=== PATIENT | male | born 1950 ===

== ENCOUNTER 2021-01-03 12:35 | Inpatient (IN) | payer MEDICARE ==
[2021-01-03 13:37] LABS: ALT (SGPT) 46 U/L (8-55); AST (SGOT) 76 U/L (5-34); Albumin 3.2 g/dL (3.4-4.8); Alkaline Phosphatase 20 U/L (40-110); Anion Gap 14 mmol/L (10-20); BUN (Urea Nitrogen) 16 mg/dL (8.4-25.7); Bilirubin, Total 0.8 mg/dL (0.2-1.2); Calc. Creatinine Clearance 0 mL/min (70-130); Calcium 8.8 mg/dL (7.8-10.44); Carbon Dioxide 25 mmol/L (23-31); Chloride 97 mmol/L (98-107); Globulin 3.3 g/dL (2.4-3.5); Glucose 101 mg/dL (80-115); Potassium 4.3 mmol/L (3.5-5.1); Protein, Total 6.5 g/dL (5.8-8.1); Sodium 132 mmol/L (136-145)
[2021-01-03 13:39] LABS: #Monocytes 0.6 10x3/uL (0.0-1.1); #Neutrophils 4.9 10x3/uL (1.5-8.4); %Lymphocytes 7.5 % (18.0-47.0); %Monocytes 9.7 % (0.0-10.0); %Neutrophils 82.5 % (40.0-75.0); Hemoglobin 14.6 g/dL (13.5-17.5); Mean Corpuscular Hemoglobin 31.3 pg (27.0-33.0); Mean Corpuscular Volume 89.3 fl (81.2-95.1); Mean Platelet Volume 9.7 fl (7.4-10.4); Platelet Count 132 10x3/uL (150-450); RBC Distribution Width 12.6 % (11.5-14.5); Red Blood Cell (RBC) Count 4.67 10x6/uL (4.32-5.72)
[2021-01-03 14:10] LABS: SARS-CoV-2 NAA Rapid Test DETECTED (NotDetected)
[2021-01-03] MEDS ORDERED: Dexamethasone 10 MG/ML VIAL ONE (14:22)
[2021-01-03] MEDS ORDERED: Acetaminophen 500 MG TAB ONE (14:34)
[2021-01-03] MEDS ORDERED: Ondansetron PF 4 MG/2 ML Vial IVP PRN (14:38)
[2021-01-03] MEDS ORDERED: Ventolin HFA Inhaler 60 PUFF INHALER INH PRN (14:43)
[2021-01-03] MEDS ORDERED: Enoxaparin Sodium 100 MG/ML SYRINGE SC SCH (21:00)
[2021-01-03] MEDS: Ascorbic Acid 500 mg Chewable Tablet PO SCH (23:10)
[2021-01-03] MEDS: Zinc Sulfate 220 MG CAP PO SCH (23:11)
[2021-01-04 08:56] LABS: #Monocytes 0.8 10x3/uL (0.0-1.1); %Basophils 0.1 % (0.0-2.0); %Lymphocytes 8.6 % (18.0-47.0); %Monocytes 8.9 % (0.0-10.0); %Neutrophils 81.9 % (40.0-75.0); Hemoglobin 16.8 g/dL (13.5-17.5); Mean Corpuscular HGB CONC 34.2 g/dL (32.0-36.0); Mean Corpuscular Hemoglobin 30.7 pg (27.0-33.0); Mean Corpuscular Volume 89.6 fl (81.2-95.1); Mean Platelet Volume 9.8 fl (7.4-10.4); Platelet Count 161 10x3/uL (150-450); RBC Distribution Width 12.7 % (11.5-14.5); Red Blood Cell (RBC) Count 5.48 10x6/uL (4.32-5.72); White Blood Cell (WBC) Count 8.5 10x3/uL (3.5-10.5)
[2021-01-04 09:12] LABS: ALT (SGPT) 55 U/L (8-55); AST (SGOT) 84 U/L (5-34); Albumin 3.4 g/dL (3.4-4.8); Alkaline Phosphatase 24 U/L (40-110); Anion Gap 16 mmol/L (10-20); BUN (Urea Nitrogen) 20 mg/dL (8.4-25.7); Bilirubin, Total 0.8 mg/dL (0.2-1.2); Calc. Creatinine Clearance 0 mL/min (70-130); Calcium 9.5 mg/dL (7.8-10.44); Carbon Dioxide 25 mmol/L (23-31); Chloride 103 mmol/L (98-107); Globulin 3.9 g/dL (2.4-3.5); Glucose 109 mg/dL (80-115); Potassium 4.4 mmol/L (3.5-5.1); Protein, Total 7.3 g/dL (5.8-8.1); Sodium 140 mmol/L (136-145)
[2021-01-04] MEDS ORDERED: Enoxaparin Sodium 40 MG/0.4 ML SYRINGE ONE (10:21)
[2021-01-04 11:37] VITALS: BMI 26.9
[2021-01-04] MEDS ORDERED: Dexamethasone Sod Phosphate 6 MG in Sodium Chloride 0.9% 50 ML IVPB SCH (12:00)
[2021-01-04] MEDS ORDERED: Enoxaparin Sodium 60 MG/0.6 ML SYRINGE SC SCH (12:00)
[2021-01-04] MEDS: Acetaminophen 325 MG TAB PO PRN ×2 (13:39→22:29)
[2021-01-04] MEDS: Zinc Sulfate 220 MG CAP PO SCH (21:45)
[2021-01-04] MEDS: Ascorbic Acid 500 mg Chewable Tablet PO SCH (21:46)
[2021-01-04] MEDS: Enoxaparin Sodium 100 MG/ML SYRINGE SC SCH (21:46)
[2021-01-05] MEDS: Enoxaparin Sodium 100 MG/ML SYRINGE SC SCH ×2 (10:23→21:48)
[2021-01-05] MEDS: Acetaminophen 325 MG TAB PO PRN ×2 (10:23→21:48)
[2021-01-05 10:30] LABS: Hemoglobin 15.6 g/dL (13.5-17.5); Mean Corpuscular HGB CONC 34.6 g/dL (32.0-36.0); Mean Corpuscular Hemoglobin 30.7 pg (27.0-33.0); Mean Corpuscular Volume 88.8 fl (81.2-95.1); Mean Platelet Volume 9.7 fl (7.4-10.4); Platelet Count 201 10x3/uL (150-450); RBC Distribution Width 12.6 % (11.5-14.5); Red Blood Cell (RBC) Count 5.08 10x6/uL (4.32-5.72); White Blood Cell (WBC) Count 14.2 10x3/uL (3.5-10.5)
[2021-01-05 10:31] LABS: ALT (SGPT) 51 U/L (8-55); AST (SGOT) 65 U/L (5-34); Albumin 2.9 g/dL (3.4-4.8); Alkaline Phosphatase 29 U/L (40-110); Anion Gap 14 mmol/L (10-20); BUN (Urea Nitrogen) 20 mg/dL (8.4-25.7); Bilirubin, Total 1.2 mg/dL (0.2-1.2); CRP (Inflammatory) 13.33 mg/dL (= or < 0.5); Calc. Creatinine Clearance 127 mL/min (70-130); Calcium 8.6 mg/dL (7.8-10.44); Carbon Dioxide 24 mmol/L (23-31); Chloride 101 mmol/L (98-107); Globulin 3.4 g/dL (2.4-3.5); Glucose 129 mg/dL (80-115); Potassium 3.9 mmol/L (3.5-5.1); Protein, Total 6.3 g/dL (5.8-8.1); Sodium 135 mmol/L (136-145)
[2021-01-05] MEDS ORDERED: Dexamethasone 4 mg/ml Vial SLOW IVP SCH ×2 (11:00→21:00)
[2021-01-05 11:11] LABS: MDiff Complete? YES
[2021-01-05 11:20] LABS: Neutrophil 86 % (42-75)
[2021-01-05 11:21] LABS: Band 7 % (5-11); Lymphocytes 4 % (21-51)
[2021-01-05 11:23] LABS: Monocytes 3 % (0-10)
[2021-01-05 11:24] LABS: Platelet Morphology Comment Appears Adequate
[2021-01-05] MEDS ORDERED: BARICITINIB 2 MG TAB PO SCH (11:45)
[2021-01-05] MEDS ORDERED: HYDROcodone/Acetaminophen 7.5/325 mg Tablet PO PRN (15:13)
[2021-01-05] MEDS: HYDROcodone/Acetaminophen 7.5/325 mg Tablet PO PRN (18:36)
[2021-01-05] MEDS: Zinc Sulfate 220 MG CAP PO SCH (21:48)
[2021-01-05] MEDS: Ascorbic Acid 500 mg Chewable Tablet PO SCH (21:48)
[2021-01-05] MEDS: Dexamethasone 20 MG/5 ML VIAL SLOW IVP SCH (21:49)
[2021-01-06 08:25] LABS: Actual Bicarbonate (HCO3a) 27.1 mEq/L (22-28); Base Excess (BEa) 4.8 mEq/L (-2.0 to +3.0); CO2 Tension 33.4 mmHg (35.0-45.0); Calcium, Ionized (arterial) 1.13 mmol/L (1.12-1.30); Carboxyhemoglobin (COHb) 0.4 gm% (0.0-3.0); Hemoglobin (Hb) 15.6 g/dL (14.0-18.0); O2 Tension (PaO2), arterial 57.7 mmHg (> 70.0); Potassium - ABG Lab 3.9 mmol/L (3.70-5.30); Puncture Site LRA; pH, Arterial 7.53 (7.35-7.45)
[2021-01-06 08:55] LABS: ALT (SGPT) 50 U/L (8-55); AST (SGOT) 66 U/L (5-34); Alkaline Phosphatase 38 U/L (40-110); Anion Gap 15 mmol/L (10-20); BUN (Urea Nitrogen) 23 mg/dL (8.4-25.7); Bilirubin, Total 0.9 mg/dL (0.2-1.2); Calc. Creatinine Clearance 130 mL/min (70-130); Calcium 9.2 mg/dL (7.8-10.44); Carbon Dioxide 25 mmol/L (23-31); Chloride 101 mmol/L (98-107); Globulin 3.7 g/dL (2.4-3.5); Glucose 127 mg/dL (80-115); Protein, Total 6.7 g/dL (5.8-8.1); Sodium 137 mmol/L (136-145)
[2021-01-06] MEDS ORDERED: Dexamethasone 20 MG/5 ML VIAL SLOW IVP SCH (09:00)
[2021-01-06] MEDS: Enoxaparin Sodium 100 MG/ML SYRINGE SC SCH ×2 (10:00→21:37)
[2021-01-06] MEDS: Dexamethasone 20 MG/5 ML VIAL SLOW IVP SCH ×2 (10:17→21:38)
[2021-01-06] MEDS: BARICITINIB 2 MG TAB PO SCH (10:28)
[2021-01-06] MEDS: Acetaminophen 325 MG TAB PO PRN (15:32)
[2021-01-06] MEDS ORDERED: Furosemide 20 MG/2 ML VIAL SLOW IVP SCH (16:30)
[2021-01-06 21:31] LABS: Anion Gap 14 mmol/L (10-20); BUN (Urea Nitrogen) 25 mg/dL (8.4-25.7); Calc. Creatinine Clearance 136 mL/min (70-130); Calcium 9.1 mg/dL (7.8-10.44); Carbon Dioxide 26 mmol/L (23-31); Chloride 99 mmol/L (98-107); Glucose 110 mg/dL (80-115); Potassium 3.9 mmol/L (3.5-5.1); Sodium 135 mmol/L (136-145)
[2021-01-06] MEDS: Zinc Sulfate 220 MG CAP PO SCH (21:37)
[2021-01-06] MEDS: Ascorbic Acid 500 mg Chewable Tablet PO SCH (21:38)
[2021-01-06] MEDS: guaiFENesin ER 600 MG TAB PO SCH (21:38)
[2021-01-07] MEDS: Furosemide 20 MG/2 ML VIAL SLOW IVP SCH ×2 (05:22→16:00)
[2021-01-07 07:32] LABS: Actual Bicarbonate (HCO3a) 25.9 mEq/L (22-28); Base Excess (BEa) 3.4 mEq/L (-2.0 to +3.0); CO2 Tension 33.3 mmHg (35.0-45.0); Calcium, Ionized (arterial) 1.15 mmol/L (1.12-1.30); Carboxyhemoglobin (COHb) 0.3 gm% (0.0-3.0); Hemoglobin (Hb) 14.5 g/dL (14.0-18.0); O2 Tension (PaO2), arterial 64.8 mmHg (> 70.0); Potassium - ABG Lab 3.8 mmol/L (3.70-5.30); Puncture Site LRA; pH, Arterial 7.51 (7.35-7.45)
[2021-01-07 07:34] LABS: ALV-art Gradient 535.275 mmHg (0-20)
[2021-01-07] MEDS: Enoxaparin Sodium 100 MG/ML SYRINGE SC SCH ×2 (09:22→20:25)
[2021-01-07] MEDS: Cholecalciferol (Vitamin D3) 400 UNITS TAB PO SCH (09:22)
[2021-01-07] MEDS: Dexamethasone 20 MG/5 ML VIAL SLOW IVP SCH ×2 (09:22→20:25)
[2021-01-07] MEDS: guaiFENesin ER 600 MG TAB PO SCH ×2 (09:23→20:26)
[2021-01-07] MEDS: BARICITINIB 2 MG TAB PO SCH (09:41)
[2021-01-07] MEDS ORDERED: Enoxaparin Sodium 100 MG/ML SYRINGE ONE (20:16)
[2021-01-07] MEDS: Zinc Sulfate 220 MG CAP PO SCH (20:26)
[2021-01-07] MEDS: Ascorbic Acid 500 mg Chewable Tablet PO SCH (20:26)
[2021-01-07] MEDS: HYDROcodone/Acetaminophen 7.5/325 mg Tablet PO PRN (20:40)
[2021-01-08] MEDS: guaiFENesin ER 600 MG TAB PO SCH ×2 (07:54→20:02)
[2021-01-08] MEDS: Enoxaparin Sodium 100 MG/ML SYRINGE SC SCH ×2 (07:54→20:02)
[2021-01-08] MEDS: Cholecalciferol (Vitamin D3) 400 UNITS TAB PO SCH (07:54)
[2021-01-08] MEDS: Dexamethasone 20 MG/5 ML VIAL SLOW IVP SCH ×2 (07:55→20:01)
[2021-01-08 09:21] LABS: ALT (SGPT) 60 U/L (8-55); AST (SGOT) 61 U/L (5-34); Albumin 2.9 g/dL (3.4-4.8); Alkaline Phosphatase 40 U/L (40-110); Anion Gap 16 mmol/L (10-20); BUN (Urea Nitrogen) 29 mg/dL (8.4-25.7); Bilirubin, Total 0.9 mg/dL (0.2-1.2); CRP (Inflammatory) 5.72 mg/dL (= or < 0.5); Calc. Creatinine Clearance 138 mL/min (70-130); Carbon Dioxide 26 mmol/L (23-31); Chloride 99 mmol/L (98-107); Globulin 3.8 g/dL (2.4-3.5); Glucose 125 mg/dL (80-115); Potassium 3.9 mmol/L (3.5-5.1); Protein, Total 6.7 g/dL (5.8-8.1); Sodium 137 mmol/L (136-145)
[2021-01-08] MEDS: BARICITINIB 2 MG TAB PO SCH (10:08)
[2021-01-08 14:20] LABS: ALV-art Gradient 537.075 mmHg (0-20); Actual Bicarbonate (HCO3a) 25.8 mEq/L (22-28); Base Excess (BEa) 3.6 mEq/L (-2.0 to +3.0); CO2 Tension 32.5 mmHg (35.0-45.0); Calcium, Ionized (arterial) 1.12 mmol/L (1.12-1.30); Carboxyhemoglobin (COHb) 0.3 gm% (0.0-3.0); Hemoglobin (Hb) 15.7 g/dL (14.0-18.0); Potassium - ABG Lab 3.9 mmol/L (3.70-5.30); Puncture Site RBA; pH, Arterial 7.52 (7.35-7.45)
[2021-01-08] MEDS: Furosemide 20 MG/2 ML VIAL SLOW IVP SCH ×2 (14:39)
[2021-01-08] MEDS: Acetaminophen 325 MG TAB PO PRN (16:13)
[2021-01-08] MEDS: Zinc Sulfate 220 MG CAP PO SCH (20:02)
[2021-01-08] MEDS: Ascorbic Acid 500 mg Chewable Tablet PO SCH (20:02)
[2021-01-08] MEDS: Famotidine 20 MG TAB PO SCH (20:03)
[2021-01-09] MEDS: Furosemide 20 MG/2 ML VIAL SLOW IVP SCH ×2 (05:22→14:53)
[2021-01-09] MEDS: Dexamethasone 20 MG/5 ML VIAL SLOW IVP SCH ×2 (07:34→20:59)
[2021-01-09] MEDS: guaiFENesin ER 600 MG TAB PO SCH ×2 (07:34→21:00)
[2021-01-09] MEDS: BARICITINIB 2 MG TAB PO SCH (07:35)
[2021-01-09] MEDS: Enoxaparin Sodium 100 MG/ML SYRINGE SC SCH ×2 (07:35→20:59)
[2021-01-09] MEDS: Famotidine 20 MG TAB PO SCH ×2 (07:35→21:00)
[2021-01-09] MEDS: Cholecalciferol (Vitamin D3) 400 UNITS TAB PO SCH (07:35)
[2021-01-09] MEDS: Ascorbic Acid 500 mg Chewable Tablet PO SCH (20:59)
[2021-01-09] MEDS: Zinc Sulfate 220 MG CAP PO SCH (21:00)
[2021-01-10 04:41] LABS: Mean Corpuscular HGB CONC 35.6 g/dL (32.0-36.0); Mean Corpuscular Hemoglobin 30.9 pg (27.0-33.0); Mean Corpuscular Volume 86.9 fl (81.2-95.1); Mean Platelet Volume 9.7 fl (7.4-10.4); Platelet Count 384 10x3/uL (150-450); RBC Distribution Width 12.3 % (11.5-14.5); Red Blood Cell (RBC) Count 5.18 10x6/uL (4.32-5.72); White Blood Cell (WBC) Count 20.6 10x3/uL (3.5-10.5)
[2021-01-10 04:51] LABS: ALT (SGPT) 53 U/L (8-55); AST (SGOT) 46 U/L (5-34); Albumin 2.8 g/dL (3.4-4.8); Alkaline Phosphatase 37 U/L (40-110); Anion Gap 14 mmol/L (10-20); BUN (Urea Nitrogen) 28 mg/dL (8.4-25.7); Bilirubin, Total 0.9 mg/dL (0.2-1.2); Calc. Creatinine Clearance 130 mL/min (70-130); Carbon Dioxide 25 mmol/L (23-31); Chloride 97 mmol/L (98-107); Globulin 3.9 g/dL (2.4-3.5); Glucose 105 mg/dL (80-115); Potassium 4.1 mmol/L (3.5-5.1); Protein, Total 6.7 g/dL (5.8-8.1); Sodium 132 mmol/L (136-145)
[2021-01-10 05:08] LABS: MDiff Complete? YES
[2021-01-10 05:10] LABS: Lymphocytes 1 % (21-51); Monocytes 2 % (0-10); Neutrophil 97 % (42-75)
[2021-01-10] MEDS: Furosemide 20 MG/2 ML VIAL SLOW IVP SCH ×2 (06:10→15:21)
[2021-01-10] MEDS: Enoxaparin Sodium 100 MG/ML SYRINGE SC SCH ×2 (07:52→23:10)
[2021-01-10] MEDS: Cholecalciferol (Vitamin D3) 400 UNITS TAB PO SCH (07:52)
[2021-01-10] MEDS: guaiFENesin ER 600 MG TAB PO SCH ×2 (07:52→23:10)
[2021-01-10] MEDS: BARICITINIB 2 MG TAB PO SCH (07:52)
[2021-01-10] MEDS: Famotidine 20 MG TAB PO SCH ×2 (07:53→23:10)
[2021-01-10] MEDS: Dexamethasone 20 MG/5 ML VIAL SLOW IVP SCH ×2 (07:53→23:10)
[2021-01-10] MEDS ORDERED: Enoxaparin Sodium 100 MG/ML SYRINGE ONE ×2 (23:10)
[2021-01-10] MEDS: Zinc Sulfate 220 MG CAP PO SCH (23:10)
[2021-01-10] MEDS: Ascorbic Acid 500 mg Chewable Tablet PO SCH (23:11)
[2021-01-11] MEDS: Furosemide 20 MG/2 ML VIAL SLOW IVP SCH ×2 (05:54→09:00)
[2021-01-11] MEDS: BARICITINIB 2 MG TAB PO SCH (07:54)
[2021-01-11] MEDS: Cholecalciferol (Vitamin D3) 400 UNITS TAB PO SCH (07:55)
[2021-01-11] MEDS: Dexamethasone 20 MG/5 ML VIAL SLOW IVP SCH ×2 (07:55→08:58)
[2021-01-11] MEDS: Enoxaparin Sodium 100 MG/ML SYRINGE SC SCH ×2 (07:55→20:16)
[2021-01-11] MEDS: Famotidine 20 MG TAB PO SCH ×2 (07:56→20:17)
[2021-01-11] MEDS: guaiFENesin ER 600 MG TAB PO SCH ×2 (07:57→20:16)
[2021-01-11 09:47] LABS: ALT (SGPT) 57 U/L (8-55); AST (SGOT) 53 U/L (5-34); Albumin 2.7 g/dL (3.4-4.8); Alkaline Phosphatase 42 U/L (40-110); Anion Gap 16 mmol/L (10-20); BUN (Urea Nitrogen) 32 mg/dL (8.4-25.7); Bilirubin, Total 0.8 mg/dL (0.2-1.2); CRP (Inflammatory) 3.82 mg/dL (= or < 0.5); Calc. Creatinine Clearance 111 mL/min (70-130); Calcium 8.6 mg/dL (7.8-10.44); Carbon Dioxide 22 mmol/L (23-31); Chloride 98 mmol/L (98-107); Glucose 104 mg/dL (80-115); Potassium 4.1 mmol/L (3.5-5.1); Protein, Total 6.7 g/dL (5.8-8.1); Sodium 132 mmol/L (136-145)
[2021-01-11] MEDS: Zinc Sulfate 220 MG CAP PO SCH (20:16)
[2021-01-11] MEDS: Ascorbic Acid 500 mg Chewable Tablet PO SCH (20:16)
[2021-01-12] MEDS: Famotidine 20 MG TAB PO SCH ×2 (08:45→21:21)
[2021-01-12] MEDS: Dexamethasone 20 MG/5 ML VIAL SLOW IVP SCH (08:45)
[2021-01-12] MEDS: BARICITINIB 2 MG TAB PO SCH (08:45)
[2021-01-12] MEDS: Cholecalciferol (Vitamin D3) 400 UNITS TAB PO SCH (08:45)
[2021-01-12] MEDS: Enoxaparin Sodium 100 MG/ML SYRINGE SC SCH ×2 (08:45→21:22)
[2021-01-12] MEDS: Furosemide 20 MG/2 ML VIAL SLOW IVP SCH (08:46)
[2021-01-12] MEDS: guaiFENesin ER 600 MG TAB PO SCH ×2 (08:46→21:21)
[2021-01-12] MEDS: Zinc Sulfate 220 MG CAP PO SCH (21:21)
[2021-01-12] MEDS: Ascorbic Acid 500 mg Chewable Tablet PO SCH (21:21)
[2021-01-13 06:37] LABS: ALT (SGPT) 86 U/L (8-55); AST (SGOT) 46 U/L (5-34); Albumin 2.7 g/dL (3.4-4.8); Alkaline Phosphatase 45 U/L (40-110); Anion Gap 19 mmol/L (10-20); BUN (Urea Nitrogen) 37 mg/dL (8.4-25.7); Bilirubin, Total 0.9 mg/dL (0.2-1.2); Calc. Creatinine Clearance 116 mL/min (70-130); Calcium 9.1 mg/dL (7.8-10.44); Carbon Dioxide 20 mmol/L (23-31); Chloride 101 mmol/L (98-107); Globulin 4.3 g/dL (2.4-3.5); Glucose 71 mg/dL (83-110); Sodium 136 mmol/L (136-145)
[2021-01-13 06:47] LABS: Hemoglobin 17.4 g/dL (13.5-17.5); Mean Corpuscular Hemoglobin 30.9 pg (27.0-33.0); Mean Corpuscular Volume 88.3 fl (81.2-95.1); Mean Platelet Volume 10.2 fl (7.4-10.4); Platelet Count 369 10x3/uL (150-450); RBC Distribution Width 12.8 % (11.5-14.5); Red Blood Cell (RBC) Count 5.63 10x6/uL (4.32-5.72); White Blood Cell (WBC) Count 23.3 10x3/uL (3.5-10.5)
[2021-01-13] MEDS: Dexamethasone 20 MG/5 ML VIAL SLOW IVP SCH (08:49)
[2021-01-13] MEDS: Furosemide 20 MG/2 ML VIAL SLOW IVP SCH (08:49)
[2021-01-13] MEDS: Enoxaparin Sodium 100 MG/ML SYRINGE SC SCH ×2 (08:49→21:06)
[2021-01-13] MEDS: Famotidine 20 MG TAB PO SCH ×2 (08:50→21:07)
[2021-01-13] MEDS: guaiFENesin ER 600 MG TAB PO SCH ×2 (08:50→21:06)
[2021-01-13] MEDS: Cholecalciferol (Vitamin D3) 400 UNITS TAB PO SCH (08:50)
[2021-01-13] MEDS: HYDROcodone/Acetaminophen 7.5/325 mg Tablet PO PRN (08:50)
[2021-01-13] MEDS: BARICITINIB 2 MG TAB PO SCH (08:50)
[2021-01-13 09:15] LABS: Lymphocytes 4 % (21-51); Monocytes 1 % (0-10); Neutrophil 95 % (42-75)
[2021-01-13 09:16] LABS: Large Platelets SLIGHT; MDiff Complete? YES; Platelet Morphology Comment Appears Adequate; RBC Morphology Normal
[2021-01-13 15:55] LABS: Actual Bicarbonate (HCO3a) 23.8 mEq/L (22-28); Base Excess (BEa) 2.1 mEq/L (-2.0 to +3.0); CO2 Tension 30.1 mmHg (35.0-45.0); Calcium, Ionized (arterial) 1.13 mmol/L (1.12-1.30); Carboxyhemoglobin (COHb) 0.3 gm% (0.0-3.0); Hemoglobin (Hb) 17.5 g/dL (14.0-18.0); O2 Tension (PaO2), arterial 65.3 mmHg (> 70.0); Potassium - ABG Lab 4.3 mmol/L (3.70-5.30); Puncture Site RRA; pH, Arterial 7.52 (7.35-7.45)
[2021-01-13 15:57] LABS: ALV-art Gradient 610.075 mmHg (0-20)
[2021-01-13] MEDS: Lorazepam 2 MG/ML VIAL SLOW IVP PRN (21:04)
[2021-01-13] MEDS: Ascorbic Acid 500 mg Chewable Tablet PO SCH (21:06)
[2021-01-13] MEDS: Zinc Sulfate 220 MG CAP PO SCH (21:07)
[2021-01-14] MEDS: Dexmedetomidine In 0.9 % NaCl 100 ML IVPB SCH ×3 (00:28→16:40)
[2021-01-14] MEDS ORDERED: Lorazepam 2 MG/ML VIAL SLOW IVP SCH (01:00)
[2021-01-14 06:54] LABS: Actual Bicarbonate (HCO3a) 22.9 mEq/L (22-28); Base Excess (BEa) 1.1 mEq/L (-2.0 to +3.0); Calcium, Ionized (arterial) 1.19 mmol/L (1.12-1.30); Carboxyhemoglobin (COHb) 0.5 gm% (0.0-3.0); Hemoglobin (Hb) 17.3 g/dL (14.0-18.0); O2 Tension (PaO2), arterial 50.3 mmHg (> 70.0); Potassium - ABG Lab 4.7 mmol/L (3.70-5.30); Puncture Site RRA
[2021-01-14] MEDS: Lorazepam 2 MG/ML VIAL SLOW IVP PRN (07:05)
[2021-01-14 08:17] LABS: #Monocytes 0.7 10x3/uL (0.0-1.1); #Neutrophils 17.7 10x3/uL (1.5-8.4); %Basophils 0.2 % (0.0-2.0); %Lymphocytes 3.3 % (18.0-47.0); %Monocytes 3.5 % (0.0-10.0); %Neutrophils 90.5 % (40.0-75.0); Mean Corpuscular HGB CONC 33.2 g/dL (32.0-36.0); Mean Corpuscular Volume 90.5 fl (81.2-95.1); Mean Platelet Volume 10.5 fl (7.4-10.4); Platelet Count 418 10x3/uL (150-450); RBC Distribution Width 12.8 % (11.5-14.5); Red Blood Cell (RBC) Count 5.66 10x6/uL (4.32-5.72); White Blood Cell (WBC) Count 19.6 10x3/uL (3.5-10.5)
[2021-01-14 08:29] LABS: ALT (SGPT) 66 U/L (8-55); AST (SGOT) 33 U/L (5-34); Albumin 2.7 g/dL (3.4-4.8); Alkaline Phosphatase 40 U/L (40-110); Bilirubin, Direct 0.3 mg/dL (0.1-0.3); Bilirubin, Total 0.8 mg/dL (0.2-1.2)
[2021-01-14] MEDS: Furosemide 20 MG/2 ML VIAL SLOW IVP SCH (08:43)
[2021-01-14] MEDS: Dexamethasone 20 MG/5 ML VIAL SLOW IVP SCH (08:43)
[2021-01-14] MEDS: Enoxaparin Sodium 100 MG/ML SYRINGE SC SCH ×2 (08:43→21:24)
[2021-01-14] MEDS: Cholecalciferol (Vitamin D3) 400 UNITS TAB PO SCH (08:44)
[2021-01-14] MEDS: BARICITINIB 2 MG TAB PO SCH (08:44)
[2021-01-14] MEDS: guaiFENesin ER 600 MG TAB PO SCH ×2 (08:44→21:25)
[2021-01-14] MEDS: Famotidine 20 MG TAB PO SCH ×2 (08:44→21:25)
[2021-01-14] MEDS: Ascorbic Acid 500 mg Chewable Tablet PO SCH (21:25)
[2021-01-14] MEDS: Zinc Sulfate 220 MG CAP PO SCH (21:25)
[2021-01-15] MEDS: Lorazepam 2 MG/ML VIAL SLOW IVP PRN (02:55)
[2021-01-15 07:15] LABS: Hemoglobin 18.2 g/dL (13.5-17.5); Mean Corpuscular HGB CONC 34.5 g/dL (32.0-36.0); Mean Corpuscular Hemoglobin 30.8 pg (27.0-33.0); Mean Corpuscular Volume 89.3 fl (81.2-95.1); Mean Platelet Volume 10.1 fl (7.4-10.4); Platelet Count 503 10x3/uL (150-450); RBC Distribution Width 12.9 % (11.5-14.5); Red Blood Cell (RBC) Count 5.91 10x6/uL (4.32-5.72); White Blood Cell (WBC) Count 24.2 10x3/uL (3.5-10.5)
[2021-01-15 07:48] LABS: ALT (SGPT) 55 U/L (8-55); AST (SGOT) 24 U/L (5-34); Albumin 2.8 g/dL (3.4-4.8); Alkaline Phosphatase 38 U/L (40-110); Anion Gap 18 mmol/L (10-20); BUN (Urea Nitrogen) 73 mg/dL (8.4-25.7); Calc. Creatinine Clearance 68 mL/min (70-130); Carbon Dioxide 19 mmol/L (23-31); Chloride 111 mmol/L (98-107); Globulin 4.4 g/dL (2.4-3.5); Potassium 4.5 mmol/L (3.5-5.1); Protein, Total 7.2 g/dL (5.8-8.1); Sodium 143 mmol/L (136-145)
[2021-01-15] MEDS: Dexmedetomidine In 0.9 % NaCl 100 ML IVPB SCH ×2 (08:00→21:41)
[2021-01-15 08:45] LABS: Actual Bicarbonate (HCO3a) 21.7 mEq/L (22-28); Calcium, Ionized (arterial) 1.21 mmol/L (1.12-1.30); Carboxyhemoglobin (COHb) 0.3 gm% (0.0-3.0); Hemoglobin (Hb) 18.9 g/dL (14.0-18.0); O2 Tension (PaO2), arterial 61.5 mmHg (> 70.0); Potassium - ABG Lab 4.4 mmol/L (3.70-5.30); Puncture Site LRA; pH, Arterial 7.49 (7.35-7.45)
[2021-01-15] MEDS: Dexamethasone 20 MG/5 ML VIAL SLOW IVP SCH (08:46)
[2021-01-15] MEDS: Furosemide 20 MG/2 ML VIAL SLOW IVP SCH (08:46)
[2021-01-15] MEDS: Enoxaparin Sodium 100 MG/ML SYRINGE SC SCH (08:46)
[2021-01-15] MEDS: Cholecalciferol (Vitamin D3) 400 UNITS TAB PO SCH (08:47)
[2021-01-15] MEDS: BARICITINIB 2 MG TAB PO SCH (08:47)
[2021-01-15] MEDS: Famotidine 20 MG TAB PO SCH (08:47)
[2021-01-15] MEDS: guaiFENesin ER 600 MG TAB PO SCH ×2 (08:47→23:44)
[2021-01-15 09:07] LABS: MDiff Complete? YES
[2021-01-15 09:09] LABS: Lymphocytes 5 % (21-51)
[2021-01-15 09:10] LABS: Bilirubin, Total 0.8 mg/dL (0.2-1.2); Calcium 9.7 mg/dL (7.8-10.44); Glucose 125 mg/dL (83-110)
[2021-01-15 09:11] LABS: Monocytes 5 % (0-10); Neutrophil 90 % (42-75)
[2021-01-15 09:12] LABS: Platelet Morphology Comment Appears Increased
[2021-01-15 09:13] LABS: RBC Morphology Normal
[2021-01-15] MEDS ORDERED: Pharmacy to Dose VANC AND CEFEPIME IVPB PRN (10:35)
[2021-01-15] MEDS ORDERED: VANCOMYCIN 2 GRAM/400 ML BAG 2 GM in Premix Bag 1 BAG IVPB SCH (11:30)
[2021-01-15] MEDS: Cefepime 2 GM in Sodium Chloride 0.9% 100 ML IVPB SCH (12:02)
[2021-01-15] MEDS ORDERED: Propofol 1,000 MG/100 ML VIAL IV ONE (15:52)
[2021-01-15] MEDS ORDERED: Pantoprazole 40 MG VIAL IVP SCH (17:00)
[2021-01-15] MEDS ORDERED: Ventilator Sedation Protocol 1 EACH FS ONE (17:12)
[2021-01-15 17:15] LABS: Actual Bicarbonate (HCO3a) 22.3 mEq/L (22-28); Base Excess (BEa) -4.5 mEq/L (-2.0 to +3.0); CO2 Tension 47.3 mmHg (35.0-45.0); Calcium, Ionized (arterial) 1.19 mmol/L (1.12-1.30); Carboxyhemoglobin (COHb) 0.1 gm% (0.0-3.0); Hemoglobin (Hb) 17.9 g/dL (14.0-18.0); O2 Tension (PaO2), arterial 70.8 mmHg (> 70.0); Potassium - ABG Lab 4.7 mmol/L (3.70-5.30); Puncture Site RRA; pH, Arterial 7.29 (7.35-7.45)
[2021-01-15 17:20] LABS: ALV-art Gradient 583.075 mmHg (0-20)
[2021-01-15 17:42] VITALS: TEMP 98.8
[2021-01-15] MEDS ORDERED: Propofol 1,000 MG/100 ML VIAL IV PRN (17:45)
[2021-01-15] MEDS ORDERED: Morphine 2 MG/ML VIAL SLOW IVP PRN (17:45)
[2021-01-15] MEDS ORDERED: Fentanyl BOLUS 250 ML IVPB PRN (17:45)
[2021-01-15] MEDS ORDERED: DISCONTINUE PREVIOUS NARCOTIC PAIN MEDICATIONS AND BENZODIAZEPINES FS SCH (17:45)
[2021-01-15] MEDS ORDERED: Propofol BOLUS 1,000 MG/100 ML VIAL IV PRN (17:45)
[2021-01-15] MEDS ORDERED: Lorazepam 2 MG/ML VIAL SLOW IVP PRN (17:45)
[2021-01-15] MEDS ORDERED: Fentanyl CADD 100 ML IVPB SCH (18:00)
[2021-01-15] MEDS ORDERED: Ventilator Sedation Protocol 1 EACH FS PRN (18:39)
[2021-01-15] MEDS ORDERED: Sodium Chloride 0.9% 1,000 ML IV SCH (20:30)
[2021-01-15] MEDS ORDERED: Cefepime 1 GM in Sodium Chloride 0.9% 100 ML IVPB SCH (21:00)
[2021-01-15] MEDS ORDERED: Vancomycin 1 GM in Premix Bag 1 BAG IVPB SCH (21:00)
[2021-01-15] MEDS ORDERED: Fentanyl 100 MCG/2 ML VIAL SLOW IVP PRN (21:25)
[2021-01-15] MEDS ORDERED: Albumin 25% 25 GM/100 ML BOT IVPB SCH (23:30)
[2021-01-15] MEDS: Zinc Sulfate 220 MG CAP PO SCH (23:44)
[2021-01-15] MEDS: Ascorbic Acid 500 mg Chewable Tablet PO SCH (23:44)
[2021-01-16] MEDS: Cefepime 2 GM in Sodium Chloride 0.9% 100 ML IVPB SCH (00:04)
[2021-01-16] MEDS: Dexmedetomidine In 0.9 % NaCl 100 ML IVPB SCH (01:22)
[2021-01-16] MEDS ORDERED: Norepinephrine 16 MG, Admixture Fee 1 EACH in Dextrose 5% in Water 250 ML IVPB SCH (02:00)
[2021-01-16 04:13] VITALS: BP 77/60
[2021-01-16] MEDS ORDERED: Midazolam HCl 2 mg/2 ml Vial ONE (05:02)
[2021-01-16] MEDS ORDERED: Fentanyl CADD 0 ML ONE (05:02)
[2021-01-16] MEDS ORDERED: Midazolam HCl 2 mg/2 ml Vial IVP PRN (05:13)
[2021-01-16] MEDS ORDERED: Vancomycin 1.5 GRAM/300 ML BAG 1.5 GM in Premix Bag 1 BAG IVPB SCH ×2 (05:30→12:15)
[2021-01-16] MEDS ORDERED: VANCOMYCIN 1.75 GM/350 ML BAG 1.75 GM in Premix Bag 1 BAG IVPB SCH (05:30)
[2021-01-16 05:34] LABS: Hemoglobin 11.8 g/dL (13.5-17.5); Mean Corpuscular HGB CONC 31.7 g/dL (32.0-36.0); Mean Corpuscular Hemoglobin 31.5 pg (27.0-33.0); Mean Corpuscular Volume 99.2 fl (81.2-95.1); Mean Platelet Volume 10.4 fl (7.4-10.4); Platelet Count 418 10x3/uL (150-450); RBC Distribution Width 13.4 % (11.5-14.5); Red Blood Cell (RBC) Count 3.75 10x6/uL (4.32-5.72); White Blood Cell (WBC) Count 46.6 10x3/uL (3.5-10.5)
[2021-01-16 05:36] LABS: ALT (SGPT) 97 U/L (8-55); AST (SGOT) 92 U/L (5-34); Albumin 2.4 g/dL (3.4-4.8); Alkaline Phosphatase 22 U/L (40-110); Anion Gap 21 mmol/L (10-20); BUN (Urea Nitrogen) 123 mg/dL (8.4-25.7); Bilirubin, Total 0.6 mg/dL (0.2-1.2); CRP (Inflammatory) 6.17 mg/dL (= or < 0.5); Calc. Creatinine Clearance 28 mL/min (70-130); Calcium 7.8 mg/dL (7.8-10.44); Carbon Dioxide 19 mmol/L (23-31); Chloride 119 mmol/L (98-107); Globulin 2.7 g/dL (2.4-3.5); Glucose 172 mg/dL (83-110); Potassium 7.5 mmol/L (3.5-5.1); Protein, Total 5.1 g/dL (5.8-8.1); Sodium 151 mmol/L (136-145)
[2021-01-16] MEDS ORDERED: Pantoprazole 40 MG VIAL IVP SCH (09:00)
[2021-01-16 09:01] LABS: MDiff Complete? YES
[2021-01-16 09:04] LABS: Band 1 % (5-11); Lymphocytes 5 % (21-51); Monocytes 8 % (0-10); Neutrophil 86 % (42-75)
[2021-01-16 09:05] LABS: Platelet Morphology Comment Appears Increased
[2021-01-16 09:10] LABS: RBC Morphology Normal
[2021-01-16] MEDS ORDERED: Succinylcholine 200 MG/10 ml SYRINGE FS ONE (14:51)
[2021-01-17] MEDS ORDERED: Cefepime 1 GM in Sodium Chloride 0.9% 100 ML IVPB SCH (00:30)
== END 2021-01-16 17:00 | disposition expired | DRG 208 ==
LOC: CSHERS 12:35 → CSHERHOLD 16:58 → CSHICU 01-04 10:56 → CSHTELE 01-10 16:47 → CSHIMCU 01-13 14:40
PROVIDERS: ADMIT Family Medicine; ATTEND Family Medicine
PROC: 8E0ZXY6 Isolation (ICD-10-PCS; principal; 2021-01-03)
PROC: XW0DXM6 Introduction of Baricitinib into Mouth and Pharynx, External Approach, New Technology Group 6 (ICD-10-PCS; 2021-01-06)
PROC: 5A1935Z Respiratory Ventilation, Less than 24 Consecutive Hours (ICD-10-PCS; 2021-01-14)
PROC: 5A09357 Assistance with Respiratory Ventilation, Less than 24 Consecutive Hours, Continuous Positive Airway Pressure (ICD-10-PCS; 2021-01-15)
PROC: 0BH17EZ Insertion of Endotracheal Airway into Trachea, Via Natural or Artificial Opening (ICD-10-PCS; 2021-01-15)
PROC: 5A12012 Performance of Cardiac Output, Single, Manual (ICD-10-PCS; 2021-01-16)
PROC: 3E033XZ Introduction of Vasopressor into Peripheral Vein, Percutaneous Approach (ICD-10-PCS; 2021-01-16)
PROC: 02HV33Z Insertion of Infusion Device into Superior Vena Cava, Percutaneous Approach (ICD-10-PCS; 2021-01-16)
DX: U07.1 COVID-19 (principal); J12.82 Pneumonia due to coronavirus disease 2019; J80 Acute respiratory distress syndrome; A41.9 Sepsis, unspecified organism; R65.21 Severe sepsis with septic shock; J93.83 Other pneumothorax; J98.2 Interstitial emphysema; Z78.1 Physical restraint status; Z90.89 Acquired absence of other organs; Z90.49 Acquired absence of other specified parts of digestive tract
CPT/HCPCS: 0240U; 36415; 36416; 36600; 71045; 80053; 80076; 82805; 83605; 84484; 85025; 85379; 86140; 87040; 93005; 93010; 94002; 94003; 94640; 94660; 94760; 96374; C9113; J0692; J1100; J1650; J1940; J2060; J2704; J3010; J3370; J3490; J7050; J7070; P9047